=== PATIENT | female | born 1945 | race Caucasian/White ===

== ENCOUNTER 2017-01-06 14:01 | Emergency (ER) | payer MEDICARE, SELFPAY | END 2017-01-06 16:39 | disposition home or self-care (01) | LOC: ER 14:01 | DX: L03.113 Cellulitis of right upper limb (principal); C50.912 Malignant neoplasm of unspecified site of left female breast; C50.911 Malignant neoplasm of unspecified site of right female breast; E11.9 Type 2 diabetes mellitus without complications; I10 Essential (primary) hypertension; K21.9 Gastro-esophageal reflux disease without esophagitis; F32.9 Major depressive disorder, single episode, unspecified; Z90.13 Acquired absence of bilateral breasts and nipples; Z96.651 Presence of right artificial knee joint; Z79.899 Other long term (current) drug therapy; Z88.5 Allergy status to narcotic agent | CPT/HCPCS: 36415; 96374; 96375 ==

== ENCOUNTER 2017-01-14 12:23 | Emergency (ER) | payer MEDICARE, SELFPAY | END 2017-01-14 16:21 | disposition short-term general hospital (02) | LOC: ER 12:23 | DX: E86.0 Dehydration (principal); D64.9 Anemia, unspecified; N61.0 Mastitis without abscess; F32.9 Major depressive disorder, single episode, unspecified; E11.9 Type 2 diabetes mellitus without complications; I10 Essential (primary) hypertension; Z96.651 Presence of right artificial knee joint; Z79.899 Other long term (current) drug therapy; Z88.5 Allergy status to narcotic agent | CPT/HCPCS: 36415; 96360; 96361 ==